=== PATIENT | male | born 1955 | race Caucasian/White ===

== ENCOUNTER → 2017-01-13 | Outpatient (CLI) | payer BC ==
[2017-01-13 08:45] LABS: BASOPHILS # (AUTO) 0.05 10*3/UL; BASOPHILS % (AUTO) 0.7 % (0-1); EOSINOPHILS # (AUTO) 0.22 10*3/UL; EOSINOPHILS % (AUTO) 2.9 % (0-8); HEMATOCRIT 39.7 % (42.0-52.0); HEMOGLOBIN 13.9 g/dL (14.0-18.0); MEAN CORPUSCULAR HEMOGLOBIN 30.1 PG (27-31); MEAN CORPUSCULAR VOLUME 85.9 FL (80-90); MEAN PLATELET VOLUME 8.5 FL (7.4-12.2); MONOCYTES # (AUTO) 0.67 10*3/UL (0.3-0.8); MONOCYTES % (AUTO) 8.7 % (5-15); NEUTROPHILS # (AUTO) 4.82 10*3/UL; NEUTROPHILS % (AUTO) 62.7 % (50-80); RED BLOOD COUNT 4.62 10^6/uL (4.70-6.10)
[2017-01-13 08:59] LABS: PLATELET MORPHOLOGY COMMENT NORMAL MORPHOLOGY (NORM); RBC MORPHOLOGY COMMENT NORMAL MORPHOLOGY (NORM); WBC MORPHOLOGY COMMENT NORMAL MORPHOLOGY (NORM)
[2017-01-13 09:02] LABS: CHOL/HDL RATIO 3.14 RATIO (0-4.0)
== END ==
LOC: LAB 08:23
PROVIDERS: ATTEND Family Medicine
DX: Z00.00 Encounter for general adult medical examination without abnormal findings (principal); Z12.5 Encounter for screening for malignant neoplasm of prostate
CPT/HCPCS: 36415; 80061; 82306; 84443; 85025; G0103

== ENCOUNTER 2017-03-03 19:52 | Emergency (ER) | payer BC ==
[2017-03-03 20:17] VITALS: RESP 18; TEMP 97.5
[2017-03-03] MEDS ORDERED: Tetracaine Ophth Soln 0.5% 40 DRP/4 ML BOTTLE RIGHT EYE ONE (20:17)
[2017-03-03] MEDS ORDERED: FLUORESCEIN 1 MG EYE STRIP RIGHT EYE ONE (20:18)
[2017-03-03] MEDS ORDERED: SULFACETAMIDE 10% - 5 ML EYE DROPS RIGHT EYE SCH (20:45)
--- NOTE | 2017-03-03 23:21 | PDOC ---
Eye Complaint HPI - General Chief Complaint: Eye Problem / Injury Stated Complaint: Foreign body in right eye Date Seen by Provider: 03/03/17 Time Seen by Provider: 20:15 Source: POSITIVE: Patient Exam Limitations: POSITIVE: No limitations Nurse's Notes Reviewed & Considered: Yes - History of Present Illness Initial Comments: The patient is a 61-year-old male. He was bending some hot metal and a piece of slide flipped into his right eye. He wears reading glasses. He was not wearing safety glasses. He's had cataract surgery in the past. Have you received a tetanus shot in the past 10 years?: Yes Location: Right Eye Timing: REPORTS: Abrupt Duration: 1 hour Severity: Moderate Quality: REPORTS: "Pain" (Some [id number] discomfort, right eye) Recent Injury: REPORTS: Yes (As above) Associated Symptoms: REPORTS: Pain Context: REPORTS: Foreign Body Location at Time of Onset: REPORTS: Home Concurrent Injuries: DENIES: Neck, Head, Back, Chest, Abdomen, Extremities, Face , Other Modifying Factors: REPORTS: Nothing Exacerbates Similar Symptoms Previously: Yes (states he's had foreign bodies in his eyes in the past) Recent Care Received: REPORTS: Denies Any Prior Injuries Related to Current Complaint?: No - Patient Home Medications Home Medications: Home Medications Ibuprofen [Advil] 3 mg PO QAM PRN 08/17/12 Methylcellulose [Fiber] 1 tab PO QD tab 06/01/15 Aspirin [Aspir 81] 81 mg PO DAILY tab 01/05/17 - Patient Allergies Allergies/Adverse Reactions: Allergies Allergy/AdvReac Type Severity Reaction Status Date / Time hydrocodone Allergy VOMITING Verified 03/03/17 19:57 Past Medical History - heen HEENT History: Denies History Cardiovascular History: Denies History Respiratory History: Denies History Gastrointestinal History: Denies History Genitourinary History: Denies History Endocrine History: Denies History Musculoskeletal History: Back Pain Prosthesis or Implant: No Neurological History: Denies History Blood Disorders: Denies History Psychiatric History: Denies History History of Sexually Transmitted Diseases: No Cancer History: Denies History In Past Year Been Physically Harmed or Verbally Threatened: No History of MDRO: No History of Other Communicable Diseases: No Tobacco Use: Former Smoker Alcohol Use: Occasionally Type of alcohol normally used: Beer Substance Use Type: None Anesthesia Reactions: No Malignant Hyperthermia: No Significant Family History: No pertinent family hx Past Medical History Reviewed: Reviewed - No Changes ROS - Limitations ROS Limitations: No Limitations Constitution: REPORTS: Denies Symptoms Cardiovascular: REPORTS: Denies Cardiac Symptoms Respiratory: REPORTS: Denies Resp Symptoms Neurological: REPORTS: Denies Neuro Symptoms Gastrointestinal: REPORTS: Denies GI Symptoms Endocrine: REPORTS: Denies Symptoms Musculoskeletal: REPORTS: Denies MS Symptoms Genitourinary: REPORTS: Denies Symptoms Eyes: REPORTS: Eye Pain (Right; foreign body right eye as above) ENT: REPORTS: Denies Symptoms Skin: REPORTS: Denies Skin Symptoms Lympathic: REPORTS: Denies Lympathic Symptoms Immunologic: POSITIVE: Denies Symptoms Psychiatric: POSITIVE: Denies Psych Symptoms Eye Complaint Physical Exam - General Appearance General Appearance: POSITIVE: Alert, Cooperative, No Acute Distress. NEGATIVE: No Evidence of Trauma - Visual Acuity / Pupil Size Visual Acuity: 20/30: Right (without glasses), 20/20: Left (without glasses) Pupil Size: 3 mm: Bilateral (PERRLA) - HEENT Head / Face: POSITIVE: Atraumatic, Normal Inspection, No Facial Swelling Eyes: POSITIVE: PERRL, EOM's Intact, Eyelids Uninjured, Conjunctivae Uninjured, No Nystagmus, No Globe Trauma, Sclera Normal, Normal Fundoscopic Exam, Ant. Chamber Nml Inspect., Posterior Segments Normal, Corneal Foreign Body (See diagram), Corneal Abrasion (Following removal of corneal foreign body, right). NEGATIVE: Normal Corneal Inspection (Foreign body right cornea; see diagram), Foreign Body Under Eyelid Oropharynx: POSITIVE: External Inspection Nml, Pharynx Inspect. Nml, Airway Intact, Voice Normal, Moist Mucous Membranes, No Oral Injury, Lips Normal, Gums Normal, No Drooling, No Thrush, Normal Gag Reflex Dental: POSITIVE: No Dental Injury - Skin Skin: POSITIVE: Normal Color, No Skin Rash - Neck / Back Neck/Back: POSITIVE: Normal Inspection, Non-Tender, Painless ROM - Respiratory / Cardiovascular Respiratory / CVS: POSITIVE: No Respiratory Distress, Breath Sounds Normal, Regular Rate/Rhythm, Heart Sounds Normal Peripheral Pulses: Radial (R): 2+, Radial (L): 2+ - Neurological / Psychological Neuro / Psych: POSITIVE: Oriented to Person, Oriented to Place, Oriented to Time , CN's Normal as Tested, Normal Speech, Normal Cognition, Appropriate Mood, Appropriate Affect Images - Eyes Eye: 1 - Corneal foreign body Procedures - Eye Procedure Time of Procedure: 20:25 Procedure Done By:: Dr. Cox Location: Right Eye Tetracaine Drops Applied: Yes Eye FB Removal: Other (Right corneal foreign body removed with eye spud) Antibiotic Oinment/Drps Admin: Right eye (Sulfacetamide) Procedure Note:: After instillation of Pontocaine eyedrops, lid was everted with no foreign bodies or other abnormalities seen under the lids. Corneal foreign body in the mid cornea was easily removed with eye spud. Patient did have a mild corneal abrasion following removal. Anterior chambers were clear. Funduscopic examination was normal. Eye Complaint Progress - Patient's Progress Pain Medication Addressed: POSITIVE: Yes (Recommended Advil or Tylenol) School/Work Release Addressed: POSITIVE: Yes (Recommended avoidance of sun, wind and dust for a couple of days) Re-Examine Time:: 20:40 Re-Examine Comment: Corneal foreign body removed with eye spud Status: POSITIVE: Improved, Re-Examined - Consult Counseled: POSITIVE: Patient, RE: DX, RE: Need for F/U Patient Care Time - Estimated PCT Patient Care Time (In Minutes): 25 Vital Signs - Recent Vital Signs Vital Signs: Vital Signs (Last 8 hours) Temp Pulse Resp BP Pulse Ox 03/03/17 19:52 97.5 F 55 L 18 175/94 93 - VS Reviewed Vital Signs Reviewed: Yes Discharge Clinical Impression: Corneal foreign body Discharge Disposition: Discharged to Home Condition: Stable Patient Instructions Given at Discharge: Eye Foreign Body (ED) Additional Instructions: You had a small foreign body on the cornea of your right eye. This was removed in the emergency room. Once the anesthetic eyedrops wear off you might have a foreign body sensation in your eye, which should resolve over the next 12-24 hours. Please instill sulfacetamide eye drops, 4 drops in your right eye every 4 hours while awake for the next 3 or 4 days. Return anytime if condition worsens in any way whatsoever. Avoid wind, son and dust. Follow Up With: ANTHONY VALLADARES [Primary Care Provider] - (Instructions as above. Follow-up with your primary care provider or transcription specialist. Return anytime if condition worsens in any way.)
== END 2017-03-03 20:53 | disposition home or self-care (01) ==
LOC: ER 19:52
DX: T15.01XA Foreign body in cornea, right eye, initial encounter (principal); W31.89XA Contact with other specified machinery, initial encounter
CPT/HCPCS: 65220; 99282